=== PATIENT | male | born 1945 | race Caucasian/White ===

== ENCOUNTER 2019-06-10 06:56 | Day surgery (SDC) | payer OTHER, MEDICARE ==
[2019-06-09 13:14] VITALS: BMI 22.7
[2019-06-10] MEDS ORDERED: DEXAMETHASONE SOD PHOSPHATE 4 MG/1 ML VIAL ONE (08:04)
[2019-06-10] MEDS ORDERED: ONDANSETRON 4 MG/2 ML VIAL ONE (08:04)
[2019-06-10] MEDS ORDERED: ceFAZolin SODIUM 1 GM VIAL ONE (08:04)
[2019-06-10] MEDS ORDERED: PROPOFOL 20 ML ONE ×2 (08:05)
[2019-06-10] MEDS ORDERED: MIDAZOLAM HCL 2 MG/2 ML SINGLE DOSE VIAL ONE (08:05)
[2019-06-10] MEDS ORDERED: ERYTHROMYCIN 0.5% OPHTHALMIC OINTMENT 3.5 GM TUBE ONE (08:14)
[2019-06-10] MEDS ORDERED: LIDOCAINE 1%/EPI 1:100000 (20 ML MULTI DOSE VIAL) ONE (08:14)
[2019-06-10] MEDS ORDERED: BUPIVACAINE HCL/PF 0.5% (5MG/ML) 10 ML VIAL ONE (08:14)
[2019-06-10] MEDS ORDERED: TETRACAINE 0.5% OPHTH SOLN 2 ML BOTTLE ONE (08:14)
[2019-06-10] MEDS ORDERED: POVIDONE-IODINE 5% OPHTHALMIC PREP 30 ML SOLUTION ONE (08:15)
[2019-06-10] MEDS ORDERED: ONDANSETRON 4 MG/2 ML VIAL IVPUSH PRN (09:32)
[2019-06-10] MEDS ORDERED: oxyCODONE HCL 5 MG TABLET PO PRN ×2 (09:32)
[2019-06-10] MEDS ORDERED: LACTATED RINGERS SOLUTION 1,000 ML IV SCH (09:45)
[2019-06-10 10:45] VITALS: TEMP 97.4
[2019-06-10 11:23] VITALS: BP 127/73; PULSE 53
--- NOTE | 2019-06-10 12:49 | OP ---
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 PROCEDURE: 1. Lateral tarsal strip with lateral canthoplasty, right. 2. Tarsotomy/conjunctivoplasty with marginal rotation, right lower lid. SURGEON: Jairo Purdy MD ANESTHESIA: Local with sedation. COMPLICATIONS: None. ESTIMATED BLOOD LOSS: 5-10 mL. OPERATIVE REPORT: Patient brought to the operating room and placed on the operating room table. Vital signs were monitored by Anesthesia. Tetracaine was placed in both eyes. Lateral canthal line was marked at the right lateral canthus, and a depression with tarsal kink or rotated tarsal fragment appeared to be rotated and the margin anteriorly was marked. A time-out was performed. Intravenous sedation was administered and then a 50/50 mixture of 2% Xylocaine with 1:100,000 epinephrine and 0.5% Marcaine was injected subcutaneously in the lateral canthus, down to the periosteum, and subconjunctivally in the right lower lid below the area of the tarsal kink. Patient was prepped and draped in the usual sterile fashion exposing both eyes. Lateral canthal incision was made with a 15 blade and then carried down to the periosteum with Shari scissors to avoid excess cautery in light of the healing phase. A small amount of fat was cauterized, and the inferior phillip of the lateral canthal tendon was released from the orbital rim with sharp dissection. The lid was overlapped at the orbital rim, marked, and then a small tarsal strip was created, and a lateral remnant of the reconstructed eyelid dividing it into an anterior and posterior lamella. The anterior lamella was excised. Posterior lamella was posteriorly and superiorly and then double-armed 5-0 Prolene was placed securely in mattress fashion through the tarsal strip and then through the orbital rim slightly higher than horizontal to recreate the lateral canthus. This was reinforced with two 6-0 Vicryl lasso sutures in the tarsus, but the lateral canthal angle was not reformed at this time nor was the Prolene tied. Lid was everted, and an incision was made through the junction of the tarsus and conjunctivae where the greatest portion of kink was, and Shari scissors were used to dissect within the eyelid to allow rotation and release of a kink that had formed from the inferior tarsal plate. Once the kink could be flattened out and straightened so that the margin would be more appropriately against the globe, 2 double-armed 5-0 chromic sutures were passed from the superior tarsal conjunctiva above the wound and then through the conjunctiva below the wound exiting through the inferior to the skin graft rotating the margin and rotating the tarsal kink internally to correct the marginal malposition. The lateral canthal angle was reformed with a 5-0 chronic through the Stuart line of the upper and lower lid buried in buried fashion to recreate the canthus. There was a small subconjunctival hematoma, which developed around a pinguecula temporally, and a small buttonhole was made in the conjunctiva. The hematoma was drained and then this buttonhole was closed with a buried 7-0 Vicryl suture after a small amount of hemostasis. The Prolene was now tied reattaching the tarsal strip to the orbital rim. Lateral to this the muscle layer was closed after antibiotic irrigation with buried 5-0 chromic, and the skin was closed with interrupted 6-0 plain. The 2 marginal rotation sutures rotating the lid to correct the tarsal kink were now tied on the skin surface creating nice apposition of the margin to the globe. Erythromycin ointment was placed in the eye and on the sutures of the lateral right orbital rim and the lateral canthus, and the patient was taken to recovery room in stable condition. JAIRO PURDY M.D. [id number]
== END 2019-06-10 11:20 | disposition home or self-care (01) ==
LOC: FASU 06:56
PROVIDERS: ATTEND Ophthalmology
PROC: 08SQ0ZZ Reposition Right Lower Eyelid, Open Approach (ICD-10-PCS; principal; 2019-06-10 08:55)
DX: H02.012 Cicatricial entropion of right lower eyelid (principal); H02.89 Other specified disorders of eyelid
CPT/HCPCS: 94760